=== PATIENT | male | born 1985 | race Caucasian/White ===

== ENCOUNTER 2023-03-23 15:23 | Outpatient (CLI) | payer SELFPAY | END 2023-03-23 15:24 | disposition home or self-care (01) | LOC: AMB 04-04 14:02 | PROVIDERS: PCP Physician Assistant; Visit Provider Student in an Organized Health Care Education/Training Program | DX: S09.93XA Unspecified injury of face, initial encounter (principal); V49.40XA Driver injured in collision with unspecified motor vehicles in traffic accident, initial encounter; Y92.410 Unspecified street and highway as the place of occurrence of the external cause | CPT/HCPCS: A0425; A0429 ==

== ENCOUNTER 2023-03-23 15:53 | Emergency (ER) | payer OTHER, SELFPAY ==
[2023-03-23] VITALS (22 sets, daily range): BP systolic 116–133; BP diastolic 78–99; PULSE 70–110; RESP 16–18; TEMP 37.3; O2SAT 95–100; BMI 23.5; BMI 24.2
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
[2023-03-23 16:39] LABS: Chloride* 107 mmol/L (96-114); Potassium* 3.3 mmol/L (3.6-5.1); Sodium* 139 mmol/L (135-149)
[2023-03-23 16:42] LABS: Blood Urea Nitrogen* 12 mg/dL (5-24); Carbon Dioxide* 22 mmol/L (20-32); Creatinine* 0.8 mg/dL (0.5-1.5); Est. Creatinine Clearance* 110.76; Estimated Glomerular Filt Rate 115 ml/min; Glucose* 105 mg/dL (60-115)
[2023-03-23 16:43] LABS: Calcium* 8.8 mg/dL (8.4-10.6)
--- NOTE | 2023-03-23 17:16 | ED.NURSE ---
patient returned from imaging and asked about pain. stated ok but does not want to move. offered ice pack to left calf area, feels as if a bad romina horse.
[2023-03-23] MEDS: KETOROLAC 15 MG/ML inj IVP (18:32)
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
== END 2023-03-23 19:34 | disposition home or self-care (01) ==
PROVIDERS: Emergency Provider Student in an Organized Health Care Education/Training Program; PCP Physician Assistant
DX: R10.9 Unspecified abdominal pain (principal); M54.9 Dorsalgia, unspecified; V43.52XA Car driver injured in collision with other type car in traffic accident, initial encounter
CPT/HCPCS: 36415; 70450; 70486; 71260; 72125; 73590; 74177; 80048; 93005; 99283; 99284; 99291; G0390; J1885; Q9967